=== PATIENT | male | born 1945 | race Caucasian/White ===

== ENCOUNTER → 2016-02-21 | Day surgery (SDC) | payer OTHER ==
[~2016-02-21] VITALS: Ht 175.3 cm; Wt 88.0 kg
[~2016-02-21] MED LIST: AMIODARONE HCL200 M1 PO; AMLODIPINE5 MG PO; ANTIVERT25 MG PO; ASPIR 8181 MG PO; CLOPIDOGREL75 M1 PO; CLOPIDOGREL75 MG PO; CORDARONE 200M200 MG PO; DELTASONE20 MG PO; ELIQUIS5 M1 PO; ELIQUIS5 MG PO; FAMOTIDINE40 MG PO; FINASTERIDE5 M1 PO; GLIPIZIDE2.5 MG PO; HYDROXYUREA500 M1 PO; IMDUR 60MG TAB60 MG PO; IMDUR30 MG PO; ISOSORBIDE MONO30 MG PO; LIPITOR80 M1 PO; MAGNESIUM OXID250 MG PO; MAGNESIUM OXID400 MG PO; MASON NATURAL325 MG PO; METFORMIN HYD1000 MG PO; METFORMIN1000 MG PO; METOPROLOL TART50 M1 PO; METOPROLOL TART50 MG PO; NITROSTAT0.4 M1 SL; NOVOLOG100 U/ML SC; PRAVASTATIN SOD40 MG PO; PROTONIX40 M3 PO; RANEXA 500MG500 MG PO; RANEXA500 M1 PO; RIVA15T PO; TOPROL XL 100100 MG PO; Transderm Nitro 10MG (0.4 MG/Hr) Patch TOP; XARELTO15 MG PO; ZOFRAN ODT4 M1 SL; ZOLPIDEM TART12.5 MG PO; ZOLPIDEM TARTRA10 MG PO
--- NOTE | 2016-02-21 10:50 | Operative Report ---
Operative/Inv Procedure Report Surgery Date: 02/21/16 Name of Procedure: Cataract extraction lens implantation left eye Pre-Operative Diagnosis: Age-related cataract left eye 20/40 vision 20/70 glare vision Post-Operative Diagnosis: Same Estimated Blood Loss: none Surgeon/System Architect: TAMMY ANTHONY,PATRICIA Palma Anesthesia: local monitored anesthesi Complications: None Operative/Procedure Note Note: The patient was brought to the operating room standard monitoring equipment was attached the patient was prepped and draped in the usual fashion for intraocular surgery. A lid speculum was placed to retract the lids. The case was begun by making 2 partial-thickness corneal relaxing incisions at 165. A temporal incision with a 2.4 mm keratome. The eye was stabilized with a [place] ring during this incision. 1 mL of non-preserved lidocaine was introduced into the anterior chamber to provide anesthesia. The anterior chamber was then filled and deepened with viscoelastic. A curvilinear capsulorrhexis was achieved using a 30-gauge needle and is a cystotome and capsulorrhexis was finished using a Utrata forceps. A second or paracentesis incision was made temporally with a 1 mm MVR blade. The lens was then hydrodissected with balanced salt solution and found to be rotatable. The lens was emulsified using phacoemulsification and a modified four-quadrant cracking technique. The residual cortical material was removed using automated irrigation and aspiration and as much of the anterior capsular rim was cleaned as well as possible. The posterior capsule was cleaned first with the automated machine on a low setting and then manually with a Edmond squeegee. The capsular bag was deepened with viscoelastic. The lens a Technis 1 22.0 Diopter placed into the bag under direct visualization and rotated so that the haptics were at 12 and 6:00. Viscoelastic was then removed from the eye by flushing it out and then by automated irrigation and aspiration. The eye was pressurized to a normal tone. 1/10 of a cc of vancomycin solution was introduced into the anterior chamber to provide antibiotic prophylaxis. The wounds were sealed by hydrating the stroma adjacent to them and the eye was left at a proper tone after the wounds were checked and found not to be leaking. The lid speculum was removed from the orbit. Antibiotic and steroid drops were placed on the eye and then the eye was shielded. Monitoring equipment was removed from the patient and the patient was removed from the operative suite to the holding area. The patient tolerated the procedure well and will be seen in the office tomorrow.
== END ==
LOC: STS 04:50
DX: H25.9 Unspecified age-related cataract (principal); M19.90 Unspecified osteoarthritis, unspecified site; E11.9 Type 2 diabetes mellitus without complications; Z79.84 Long term (current) use of oral hypoglycemic drugs
CPT/HCPCS: J2250; V2632

== ENCOUNTER 2016-08-02 13:34 | Emergency (ER) | payer OTHER ==
[~2016-08-02] VITALS: Ht 185.4 cm; Wt 86.2 kg
[~2016-08-02 13:34] MED LIST changes: -AMIODARONE HCL200 M1 PO; -ELIQUIS5 M1 PO; -ZOFRAN ODT4 M1 SL
[2016-08-02 14:44] LABS: ABSOLUTE BASOPHIL COUNT 0 /CUMM (0.0-0.2); ABSOLUTE EOSINOPHIL COUNT 0.1 /CUMM (0.0-0.7); ABSOLUTE GRANULOCYTE CT 15.9 /CUMM (1.4-6.5); ABSOLUTE LYMPH COUNT 0.5 /CUMM (1.2-3.4); ABSOLUTE MONOCYTE COUNT 0.3 /CUMM (0.10-0.60); BASOPHIL % 0.1 % (0.0-2.0); EOSINOPHIL % 0.8 % (0-5); HEMATOCRIT 45.5 % (42-52); MEAN CORPUSCULAR HGB 24.6 PG (27.0-31.0); MEAN CORPUSCULAR HGB CONC 31.1 G/DL (33.0-37.0); MEAN CORPUSCULAR VOLUME 79.2 FL (80.0-94.0); MEAN PLATELET VOLUME 7.6 FL (7.4-10.4); PLATELET COUNT 326 /CUMM (130-400); RBC DISTRIBUTION WIDTH 29.5 % (11.5-14.5); RED BLOOD CELL CT 5.74 /CUMM (4.70-6.10)
[2016-08-02] MEDS ORDERED: ELIQUIS5 M1 PO (14:57)
[2016-08-02] MEDS ORDERED: AMIODARONE HCL200 M1 PO (14:57)
--- NOTE | 2016-08-02 15:04 | ED GI/GU/ABDOMINAL COMPLAINT ---
History of Present Illness General Chief Complaint: General Adult Stated Complaint: VOMITING X7 DAYS Source: patient, old records Exam Limitations: no limitations Vital Signs & Intake/Output Vital Signs & Intake/Output Vital Signs Date Time Temp Pulse Resp B/P B/P Pulse O2 O2 Flow FiO2 Mean Ox Delivery Rate 08/02 1852 98.3 78 16 162/74 08/02 1730 97.9 63 16 169/78 Room Air 08/02 1520 95.5 61 20 183/82 96 Room Air 08/02 1510 97 Room Air 08/02 1340 97.6 62 20 176/88 97 Room Air Allergies Coded Allergies: cortisone (Intermediate, SWELLING 10/13/15) Triage Note: PT PRESENTS TO ER C/O OF VOMITTING X 7DAYS. PT STATES HE HAS BEEN UNABLE KEEP ANYTHING DOWN INCLUDING HIS MEDICATIONS. PT STATES HE SAW HIS DOCTOR YESTERDAY WHO SAID HIS WBC WAS ELEVATED AND IF THE NAUSEA INJECTION DIDN'T WORK FOR HIM TO COME TO ER TODAY. Triage Nurses Notes Reviewed? yes Onset: Abrupt Duration: week(s): (1), constant, continues in ED Timing: recent history Quality/Severity: moderate, severe Radiation: no radiation No Modifying Factors: none HPI: 71-year-old male comes into emergency room with complaints of nausea and vomiting that has been going on for the past week. Patient reports she is unable to keep any liquids down or food down. It comes up immediately after eating. Denies any fever cough chest pain shortness of breath. Denies any abdominal pain. Denies any fever or chills. Denies any prior history of this ever happening in the past. Nothing seems to make the symptoms better. (SOPHIE PHAM) Reconcile Medications Amiodarone HCl 200 MG TABLET 1 TAB PO DAILY AFIB (Reported) Apixaban (Eliquis) 5 MG TABLET 1 TAB PO BID BLOOD THINNER (Reported) Atorvastatin Calcium (Lipitor) 80 MG TABLET 1 TAB PO DAILY CHOLESTEROL ( Reported) Clopidogrel Bisulfate (Clopidogrel) 75 MG TABLET 1 TAB PO DAILY BLOOD THINNER (Reported) Finasteride 5 MG TABLET 1 TAB PO DAILY PROSTATE (Reported) Hydroxyurea 500 MG CAPSULE 1 CAP PO DAILY LEUKEMIA (Reported) Metoprolol Tartrate 50 MG TABLET 1 TAB PO BID AFIB (Reported) Ondansetron (Zofran Odt) 4 MG TAB.RAPDIS 1 TAB SL Q6P PRN NAUSEA/VOMITING Pantoprazole Sodium (Protonix) 40 MG TABLET.DR 1 TAB PO DAILY GI (Reported) Ranolazine (Ranexa) 500 MG TAB.ER.12H 1 TAB PO BID HEART (Reported) (OKSANA ANTHONY,CHINO Ruiz) Past History Travel History Traveled to [place] past 21 day No Medical History Any Pertinent Medical History? see below for history Neurological: CVA X2 W/RESIDUAL L FACIAL DROOP, SLIGHT WEAKNESS EENT: NONE Cardiovascular: AFIB, angina, CAD, CHF, hypertension, hyperlipidemia, NSTEMI Respiratory: NONE Gastrointestinal: NONE Hepatic: NONE Renal: chronic kidney disease Musculoskeletal: ARTHRITIS Psychiatric: NONE Endocrine: diabetes Blood Disorders: POLYCYTHEMIA Cancer(s): colon/rectal cancer, leukemia, prostate cancer CRABBER/Reproductive: NONE History of MRSA: No History of VRE: No History of CDIFF: No Surgical History Surgical History: CABG, 12 CARDIAC STENTS Psychosocial History Who do you live with Patient/Self Services at Home None What is your primary language Kinyarwanda Tobacco Use: Never used Family History Family History, If Any: BROTHER FH: lung cancer FH: prostate cancer MOTHER FH: CVA (cerebrovascular accident) FATHER FH: lung cancer Hx Contributory? No (SOPHIE PHAM) Review of Systems Review of Systems Constitutional: Reports: no symptoms. EENTM: Reports: no symptoms. Respiratory: Reports: no symptoms. Cardiovascular: Reports: no symptoms. GI: Reports: see HPI. Genitourinary: Reports: no symptoms. Musculoskeletal: Reports: no symptoms. Skin: Reports: no symptoms. Neurological/Psychological: Reports: no symptoms. Hematologic/Endocrine: Reports: no symptoms. Immunologic/Allergic: Reports: no symptoms. All Other Systems: Reviewed and Negative (SOPHIE PHAM) Physical Exam Physical Exam General Appearance: well developed/nourished, alert, awake Head: atraumatic Eyes: Right: other (eye removed, lid drooping). Ears, Nose, Throat, Mouth: hearing grossly normal, moist mucous membrane Neck: normal inspection Respiratory: normal breath sounds, no respiratory distress Cardiovascular: regular rate/rhythm Gastrointestinal: normal bowel sounds, soft, non-tender Back: normal inspection Extremities: normal range of motion Neurologic/Psych: awake, alert Skin: intact Core Measures ACS in differential dx? No Severe Sepsis Present: No Septic Shock Present: No (SOPHIE PHAM) Progress Differential Diagnosis: appendicitis, biliary colic, colon cancer, cholecystitis , diverticulitis, esophageal varices, gastritis, ischemic bowel, pancreatitis, PUD/GERD, perforated viscous, pyelonephritis, SBO, ureterolithiasis, UTI/pyelo Plan of Care: Orders Procedure Date/time Status Clear Liquid Diet 08/02 D Active TROPONIN LEVEL 08/02 1416 Complete LIPASE 08/02 1416 Complete AMYLASE 08/02 1416 Complete URINALYSIS 08/02 1401 Complete COMPREHENSIVE METABOLIC PANEL 08/02 1341 Complete CBC WITHOUT DIFFERENTIAL 08/02 1341 Complete EKG 08/02 1341 Active Laboratory Tests 08/02/16 1712: Urinalysis LIGHT H, Urine Color YEL, Urine Clarity CLEAR, Urine pH 6.0, Ur Specific [place] 1.015, Urine Protein TRACE H, Urine Ketones 15 H, Urine Nitrite NEG, Urine Bilirubin NEG@ICTO, Urine Urobilinogen 0.2, Ur Leukocyte Esterase NEG, Ur Microscopic SEDIMENT EXAMINED, Urine RBC 1-3, Urine WBC RARE, Ur Epithelial Cells RARE, Hyaline Casts RARE H, Urine Mucus FEW, Urine Hemoglobin NEG, Urine Glucose NEG 08/02/16 1416: Anion Gap 18 H, Estimated GFR 40 L, BUN/Creatinine Ratio 17.6, Glucose 103 H, Calcium 8.9, Total Bilirubin 1.3, AST 35, ALT 54, Alkaline Phosphatase 91, Troponin I 0.09, Total Protein 6.9, Albumin 4.2, Globulin 2.7, Albumin/Globulin Ratio 1.6, Amylase 35, Lipase 138, CBC w Diff MAN DIFF ORDERED, RBC 5.74, MCV 79.2 L, MCH 24.6 L, RDW 29.5 H, MPV 7.6, Gran % 94.0 H, Lymphocytes % 3.1 L , Monocytes % 2.0, Eosinophils % 0.8, Basophils % 0.1, Absolute Granulocytes 15.9 H, Absolute Lymphocytes 0.5 L, Absolute Monocytes 0.3, Absolute Eosinophils 0.1, Absolute Basophils 0, Platelet Estimate VERIFIED BY SMEAR, Polychromasia 1+, Hypochromic-Microcytic 1+, Poikilocytosis 2+, Anisocytosis 2+, Ovalocytes 2+, Elliptocytes 2+, PUBS MCHC 31.1 L 06/15/17 1401: Troponin I Cancelled, Amylase Cancelled, Lipase Cancelled Diagnostic Imaging: Viewed by Me: CT Scan. Discussed w/RAD: CT Scan. Radiology Impression: SERVICE DATE: 08/02/16 EXAM TYPE: CAT - CT ABD & PELVIS W/O IV CONTRAS; CT CHEST WO IV CONTRAST EXAMINATION: CT CHEST WITHOUT CONTRAST CT ABDOMEN AND PELVIS WITHOUT CONTRAST CLINICAL INFORMATION: Vomiting immediately after eating. History of prostate and colon cancer. COMPARISON: Chest CT 01/21/2015. Abdominal CT 07/14/2014. TECHNIQUE: Multidetector volumetric imaging was performed through the chest, abdomen and pelvis following the administration of oral contrast only. Sagittal and coronal reformatted images were obtained on the technologist's workstation. Axial MIP volume rendering provided. DLP: 927 mGy-cm. FINDINGS: CHEST: Lungs: The central airways are patent. There is similar appearance of moderate centrilobular upper lobe predominant emphysema with mild paraseptal emphysema. Subpleural reticulation with associated calcification again noted, predominantly at the lung bases. No bronchiectasis. No honeycombing. No pneumothorax or pleural effusion. The overall appearance of the lungs is similar to previous. Stable 0.4 cm right middle lobe pulmonary nodule, series 4 image 242. Mediastinum: The heart is normal in size. Coronary artery calcifications are present. No pericardial effusion. No mediastinal lymphadenopathy. The thyroid gland is unremarkable. The esophagus is normal in caliber without wall thickening. No distention. No adjacent mass. Chest Wall/Axilla: No lymphadenopathy. No chest wall mass. ABDOMEN/PELVIS: Liver, Gallbladder, Biliary Tree: The liver is normal in size, shape, and attenuation. No focal hepatic lesion or biliary ductal dilatation is present. Small gallstone seen in the gallbladder lumen. No gallbladder wall thickening or pericholecystic fluid. Pancreas: Unremarkable. Spleen: Unremarkable. Adrenal Glands: Unremarkable. Kidneys and Ureters: The kidneys are mildly atrophic with cortical thinning. No hydronephrosis. Vascular calcifications are noted. No nephrolithiasis. Exophytic left upper pole 4 cm renal cyst. Prominent bilateral perinephric stranding is unchanged. Bladder: Unremarkable. Gastrointestinal Tract: The stomach and small bowel are unremarkable. Duodenal diverticulum again noted. No dilated loops of bowel or evidence of obstruction. No colonic wall thickening or inflammatory change. Mild colonic stool burden. No free air or free fluid. The appendix is unremarkable. Abdominal Wall: Small fat-containing right inguinal hernia. Lymphovascular Structures: Lymph nodes: Normal. Vascular: Moderate atherosclerotic calcifications. Pelvic Viscera: The prostate appears diminutive. OSSEOUS STRUCTURES: No suspicious sclerotic or lytic bone lesions are identified. Scoliosis. Mild degenerative changes in the spine. Bilateral L5 pars defects with grade 1 anterolisthesis of L5 on S1. IMPRESSION: No acute findings of the chest, abdomen, or pelvis. The esophagus appears unremarkable. No small bowel obstruction. No inflammatory changes. Similar appearance of the lungs with prominent subpleural reticulation with areas of calcification suggestive of pulmonary ossification. Emphysema. Stable 0.4 cm right middle lobe pulmonary nodule suggesting a benign etiology. Initial ED EKG: normal intervals, normal p-waves, normal sinus rhythm, rate (63) , nonspecific ST T wave chg Comments: 08/02/2016 8:10:06 PM Patient clinically looks well. Patient is in no apparent distress. Patient is nontoxic-appearing. Patient resting comfortably in room. Patient was able to tolerate oral liquids here. No acute findings on CT scan. Some mild electrolyte abnormalities but nothing to admit the patient for. Case discussed with Dr. Mejias. Patient will follow up with GI as well as primary care doctor. Patient was reevaluated multiple times and continued to remain in no apparent distress. Patient denied any chest pain or shortness of breath here in the emergency room. He clinically looks well. His symptoms of a going on for over a week. The vomiting only occurs after he eats something. (JOHN VALLEJO,SOPHIE) Departure Departure Disposition: HOME OR SELF CARE Condition: Stable Clinical Impression Primary Impression: Vomiting Referrals: JUSTIN ANTHONY,MIMI (PCP/Family) Additional Instructions: Follow-up with lithographic stripper provided. You will likely require an upper endoscopy as well as possibly gastric emptying study. Return to the emergency room if any concerns worsening symptoms. Please go over all results of today's visit with your primary care doctor. Contact your primary care doctor to let them know you were here in the emergency room. There may be nonspecific findings which may not be related to your visit today here in the emergency room but may require further evaluation and chronic monitoring by your primary care doctor. If you had a laceration today the chance of foreign body always remains. You should follow-up with your primary care doctor for recheck in 3-5 days for a wound check. If you had an x-ray done there is a chance that a fracture could have been missed on initial read and you should follow-up with your primary care doctor for repeat x-rays if symptoms persist. If your blood pressure was elevated here in the emergency room please have rechecked by her primary care doctor within the next 48 hours by your primary care doctor. If you were prescribed a narcotic here in the emergency room or any type of controlled substances you're not allowed to drive while taking this medication or operate any type of heavy machinery. Narcotics can make you feel lightheaded dizziness nausea and can cause constipation. You may need to picker and sorter load and unload a stool softener. Thank you for choosing [facility] emergency room. Please return to the emergency room immediately if you have any other concerns worsening of symptoms. Departure Forms: Customer Survey General Discharge Information Comments 08/02/2016 6:47:05 PM Patient tolerating oral liquids here in the emergency room. Patient needs GI follow-up. No acute findings and the workup here. He denied any chest pain or shortness of breath here. He denied any abdominal pain. Strictly vomiting after eating. Patient likely needs a upper endoscopy and possibly gastric emptying study. He is able tolerate oral liquids here in the emergency room. Some mild electrolyte abnormalities but nothing acutely admitted for. (SOPHIE PHAM) PA/BOOKIE Co-Sign Statement Statement: ED Attending supervision documentation- [X] I saw and evaluated the patient. I have also reviewed all the pertinent lab results and diagnostic results. I agree with the findings and the plan of care as documented in the PA's/BOOKIE's documentation. [X] I have reviewed the ED Record and agree with the PA's/BOOKIE's documentation. [] Additions or exceptions (if any) to the PAs/BOOKIE's note and plan are summarized below: [] (OKSANA ANTHONY,CHINO Ruiz)
--- NOTE | 2016-08-02 15:19 | CT SCAN REPORT ---
EXAMINATION: CT CHEST WITHOUT CONTRAST CT ABDOMEN AND PELVIS WITHOUT CONTRAST CLINICAL INFORMATION: Vomiting immediately after eating. History of prostate and colon cancer. COMPARISON: Chest CT 01/21/2015. Abdominal CT 07/14/2014. TECHNIQUE: Multidetector volumetric imaging was performed through the chest, abdomen and pelvis following the administration of oral contrast only. Sagittal and coronal reformatted images were obtained on the technologist's workstation. Axial MIP volume rendering provided. DLP: 927 mGy-cm. FINDINGS: CHEST: Lungs: The central airways are patent. There is similar appearance of moderate centrilobular upper lobe predominant emphysema with mild paraseptal emphysema. Subpleural reticulation with associated calcification again noted, predominantly at the lung bases. No bronchiectasis. No honeycombing. No pneumothorax or pleural effusion. The overall appearance of the lungs is similar to previous. Stable 0.4 cm right middle lobe pulmonary nodule, series 4 image 242. Mediastinum: The heart is normal in size. Coronary artery calcifications are present. No pericardial effusion. No mediastinal lymphadenopathy. The thyroid gland is unremarkable. The esophagus is normal in caliber without wall thickening. No distention. No adjacent mass. Chest Wall/Axilla: No lymphadenopathy. No chest wall mass. ABDOMEN/PELVIS: Liver, Gallbladder, Biliary Tree: The liver is normal in size, shape, and attenuation. No focal hepatic lesion or biliary ductal dilatation is present. Small gallstone seen in the gallbladder lumen. No gallbladder wall thickening or pericholecystic fluid. Pancreas: Unremarkable. Spleen: Unremarkable. Adrenal Glands: Unremarkable. Kidneys and Ureters: The kidneys are mildly atrophic with cortical thinning. No hydronephrosis. Vascular calcifications are noted. No nephrolithiasis. Exophytic left upper pole 4 cm renal cyst. Prominent bilateral perinephric stranding is unchanged. Bladder: Unremarkable. Gastrointestinal Tract: The stomach and small bowel are unremarkable. Duodenal diverticulum again noted. No dilated loops of bowel or evidence of obstruction. No colonic wall thickening or inflammatory change. Mild colonic stool burden. No free air or free fluid. The appendix is unremarkable. Abdominal Wall: Small fat-containing right inguinal hernia. Lymphovascular Structures: Lymph nodes: Normal. Vascular: Moderate atherosclerotic calcifications. Pelvic Viscera: The prostate appears diminutive. OSSEOUS STRUCTURES: No suspicious sclerotic or lytic bone lesions are identified. Scoliosis. Mild degenerative changes in the spine. Bilateral L5 pars defects with grade 1 anterolisthesis of L5 on S1. IMPRESSION: No acute findings of the chest, abdomen, or pelvis. The esophagus appears unremarkable. No small bowel obstruction. No inflammatory changes. Similar appearance of the lungs with prominent subpleural reticulation with areas of calcification suggestive of pulmonary ossification. Emphysema. Stable 0.4 cm right middle lobe pulmonary nodule suggesting a benign etiology.
[2016-08-02 18:52] VITALS: BP 162/74
[2016-08-04] MEDS ORDERED: ZOFRAN ODT4 M1 SL (16:14)
== END 2016-08-02 18:53 ==
LOC: ERH 13:34
PROVIDERS: Emergency Medicine
DX: R11.10 Vomiting, unspecified (principal); I50.9 Heart failure, unspecified; I10 Essential (primary) hypertension
CPT/HCPCS: 74176; 81001; 93005; 93010; 96374; J2405